=== PATIENT | female | born 1945 | race Caucasian/White ===

== ENCOUNTER → 2016-07-31 | Outpatient (CLI) | payer MEDICARE ==
[~2016-07-31] MED LIST: REGADENOSON 0.4 MG/5 ML DISP.SYRIN. IV ONE
--- NOTE | 2016-08-01 17:54 | PCVCIMAG ---
APPROVED REPORT Exam: Nuclear Stress Test Indication: Exertional Dyspnea, Fatigue Stress Nurse: Angely Dunn RN, Priscilla Eldridge RN [place] Tech:MARY CottoMT Ht: 5 ft 5 in Wt: 156 lbs BSA: 1.78 m2 HR: 100 bpm BP: 183/93 mmHg BMI: 25.9 Rhythm: NSR, Tachycardia Medical History Medical History: HTN, Hyperlipidemia Cardiac Risk Factors: Age Pretest Chest Pain Characteristics: No chest pain NM EXAM: Myocardial Perfusion REST/STRESS Imaging Protocol: Rest Tc-99m/Stress Tc-99m 1 day Resting Data Rest SPECT myocardial perfusion imaging was performed in supine position 45 minutes following the intravenous injection of 11.1 mCi of Tc-99m Sestamibi. Time of rest injection: 0930 Date: 07/31/2016 Pharmacologic Stress Pharmacologic stress test was performed by injecting Regadenoson 0.4 mg IV push followed by the intravenous injection of 33.2 mCi of Tc-99m Sestamibi. Time of stress injection: 1100 Date: 07/31/2016 Administration Route: IV Administration Site: Right Arm Gated Stress SPECT was performed 45 minutes after stress injection. The images were gated to evaluate regional wall motion and calculate left ventricular ejection fraction. Study Data Post stress, the left ventricular ejection was 66%.. SSS: 0 SRS: 0 SDS: 0 TID = 0.76. Perfusion Normal left ventricular perfusion. Wall Motion Normal left ventricular wall motion. Nuclear Conclusion 1. LOW RISK STUDY Interpreted by: Geo Restrepo MD Electronically Approved: 08/01/2016 17:53:58 Stress Test Details Stress Test: Pharmacologic stress was paired with low level exercise. HR Resting HR: 100 bpmMax Heart Rate (APMHR): 150 bpm Max HR Achieved: 137 bpmTarget HR (85% APMHR): 127 bpm % of APMHR: 91 Recovery HR: 107 bpm BP Resting BP: 183/93 mmHg Max BP: 142/84 mmHg Recovery BP: 160/82 mmHg ECG Resting ECG: Sinus Rhythm Stress ECG: Sinus Rhythm Arrhythmia: None Recovery ECG: Sinus Rhythm Clinical Reason for Termination: Completed protocol, Completed protocol Stress Symptoms: Headache, resovled with caffeime Exercise duration: 4 min sec Exercise capacity: 1.6 METs Stress ECG Conclusion 1. ADEQUATE RESPONSE TO IV LEXISCAN 2. INADEQUATE RESPONSE FOR ECG DIAGNOSIS <Conclusion> 1. ADEQUATE RESPONSE TO IV LEXISCAN 2. INADEQUATE RESPONSE FOR ECG DIAGNOSIS
== END | disposition home or self-care (01) ==
LOC: PCVCIMAG 09:10
PROVIDERS: ATTEND Internal Medicine
DX: R53.83 Other fatigue (principal); R06.00 Dyspnea, unspecified; I10 Essential (primary) hypertension; E78.5 Hyperlipidemia, unspecified
CPT/HCPCS: 78452; 93017; A9500; J2785